=== PATIENT | female | born 1965 | race Caucasian/White ===

== ENCOUNTER → 2016-12-24 | Outpatient (CLI) | payer BC ==
--- NOTE | 2016-12-24 09:59 | MM ---
Reason for exam: additional evaluation requested from abnormal screening. Last mammogram was performed less than 1 month ago. History: Patient is postmenopausal. Family history of breast cancer in maternal cousin at age 39 and breast cancer in paternal aunt at age 50. Benign left US cyst aspiration of the left breast, December 20, 2006. Benign US right core biopsy of the right breast, December 20, 2006. Benign ultrasound-guided core biopsy of the right breast, May 17, 2000. Benign ultrasound-guided core biopsy of the right breast, May 17, 2000. 2 core biopsies of the right breast. Took hormonal contraceptives for 4 years beginning at age 18. Physical Findings: Nurse did not find any significant physical abnormalities on exam. MG Work Up Mamm w CAD LT CC and MLO view(s) were taken of the left breast. Prior study comparison: December 18, 2016, bilateral MG screening mammo w CAD. May 17, 2010, bilateral digital screening mammo w/CAD. There is an indeterminate group of microcalcifications in the left upper outer quadrant. These results were verbally communicated with the patient and result sheet given to the patient on 12/24/16. ASSESSMENT: Suspicious, BI-RAD 4 RECOMMENDATION: Stereotactic core biopsy of the left breast. Called Dr. Katie Barbour with mammographic findings and has scheduled an appointment for the patient for 01/16/17 at 1:[address] Pedro Barbour. Biopsy scheduled for 12/31/16 at 8:00. PRELIMINARY REPORT CALLED AND FAXED TO DR. BARBOUR ON 12/24/16.
== END | disposition home or self-care (01) ==
LOC: RADMAMWWP 07:39
PROVIDERS: ATTEND Family Medicine
DX: R92.8 Other abnormal and inconclusive findings on diagnostic imaging of breast (principal)

== ENCOUNTER → 2016-12-31 | Day surgery (SDC) | payer BC ==
[2016-12-31 07:17] VITALS: RESP 16; BMI 28.3
[2016-12-31 08:40] VITALS: BP 121/79; PULSE 67; TEMP 97
--- NOTE | 2016-12-31 09:01 | MM ---
EXAMINATION TYPE: MG stereo VAD BX LT DATE OF EXAM: 12/31/2016 COMPARISON: 12/18/2016 and 12/24/2016 CLINICAL HISTORY: 51-year-old female referred for left breast biopsy of microcalcifications TECHNIQUE: Stereotactic guided core biopsy of the left breast. FINDINGS: The procedure of stereotactic guided core biopsy was explained to the patient. Benefits, alternatives, and risks were discussed. An informed consent was then obtained. The [facility] pathway [facility] a [facility]. I performed the localization followed by the remainder of the procedure. A vacuum assisted biopsy gun was used to obtain 6 core samples. The patient tolerated the procedure well without any immediate complication. The patient was kept in the radiology department for short stay after the procedure and then discharged home in stable condition. Targeted calcifications are identified in specimen mammogram. Post biopsy mammogram shows the clip to appear in satisfactory position relative to the targeted area of concern on the preprocedure images. IMPRESSION: SUCCESSFUL, UNCOMPLICATED STEREOTACTIC GUIDED CORE BIOPSY OF LEFT BREAST UPPER OUTER QUADRANT MICROCALCIFICATIONS; FULL PATHOLOGY RESULTS TO FOLLOW. Pathology Results: High Risk BREAST, LEFT, SITE A, STEREOTACTIC CORE BIOPSY: ATYPICAL DUCTAL HYPERPLASIA/ FLAT EPITHELIAL ATYPIA IN BACKGROUND FIBROCYSTIC CHANGE. Recommendation Surgical consult of the left breast. (surgical excision) ALOK
== END ==
LOC: RADMAMWWP 06:55
PROVIDERS: ATTEND Surgery
DX: N60.12 Diffuse cystic mastopathy of left breast (principal)
CPT/HCPCS: 88305; 19081; A4648; J2001

== ENCOUNTER 2017-01-21 08:25 | Day surgery (SDC) | payer BC ==
[2017-01-17 11:38] VITALS: BMI 28.3
[~2017-01-21 08:25] MED LIST: DEXAMETHASONE SOD PHOSPHATE 10 MG/ML 1 ML VIAL IV ONE; HEPARIN SODIUM,PORCINE 5,000 UNIT/ML 1 ML VIAL SQ ONE; HYDROmorphone 0.5 MG/0.5 ML SYRINGE IVP PRN; LACTATED RINGERS 1,000 ML IV SCH; LIDOCAINE 1% 20 ML VIAL (10MG/ML) FOR IV START INTRADERMA PRN; MIDAZOLAM 2 MG/2 ML VIAL IV PRN; ONDANSETRON 4 MG/2 ML VIAL IVP ONE; Pre Op ABX Message 1 EACH MISC MISCELLANE ONE; SCOPOLAMINE 1.5MG/72HR PATCH TRANSDERM ONE
[2017-01-21] MEDS ORDERED: ALPRAZolam 0.5 MG TAB PO ONE (09:14)
[2017-01-21] MEDS ORDERED: LIDOCAINE 1% INJ 10MG/ML (20 ML MDV) SQ ONE (09:56)
[2017-01-21] MEDS ORDERED: fentaNYL (PF) 50 MCG/ML 2 ML AMP ONE (11:26)
[2017-01-21] MEDS ORDERED: LIDOCAINE 1% INJ 10MG/ML (20 ML MDV) ONE (11:26)
[2017-01-21] MEDS ORDERED: MIDAZOLAM 2 MG/2 ML VIAL ONE (11:26)
[2017-01-21] MEDS ORDERED: PROPOFOL 10 MG/ML 20 ML VIAL IV ONE (11:26)
[2017-01-21] MEDS ORDERED: KETOROLAC 30 MG/ML 1 ML VIAL ONE (11:26)
[2017-01-21] MEDS ORDERED: SODIUM CHLORIDE 0.9% 50 ML with ceFAZolin 2,000 MG IV ONE ×2 (11:27)
[2017-01-21] MEDS ORDERED: HYDROcodone/APAP 5-325MG 1 EACH TAB PO PRN (12:17)
[2017-01-21] MEDS ORDERED: NALOXONE 0.4 MG/ML 1 ML VIAL IV PRN (12:17)
--- NOTE | 2017-01-21 12:18 | P.OP ---
Date of Procedure: 01/21/17 Procedure(s) Performed: PREOPERATIVE DIAGNOSIS: Abnormal left mammogram POSTOPERATIVE DIAGNOSIS: Same PROCEDURE: Left Breast wire localization biopsy SURGEON: Km EBL: Minimal ANESTHESIA: Sedation plus local COMPLICATIONS: None OPERATIVE PROCEDURE: Patient was placed on the operating room table in the supine position. The patient's breast was prepped and draped in usual sterile fashion. A curvilinear incision was made adjacent to the wire entrance site. I followed the wire down into the breast tissue. The breast tissue around the tip of the wire was fully excised using electrocautery. The specimen was sent for specimen radiogram. The clip was present within the specimen. The subcutaneous tissues were inspected. No bleeding was seen. The subcutaneous tissues were closed using 3-0 Vicryl sutures. The skin was closed using a running 4-0 Monocryl stitch. Steri-Strips and sterile dressings were applied. DISPOSITION: Stable to recovery room
[2017-01-21 12:20] VITALS: TEMP 97.2
[2017-01-21 13:14] VITALS: RESP 16
--- NOTE | 2017-01-21 13:18 | MM ---
EXAMINATION TYPE: MG pre op needle loc LT, MG surgical specimen LT DATE OF EXAM: 01/21/2017 COMPARISON: Mammogram December 31, 2016 and older studies CLINICAL HISTORY: Stereotactic guided core biopsy of ADH and FEA. TECHNIQUE: Needle localization with wire placement and surgical excision of area of concern in the left breast followed by specimen mammogram after surgery. FINDINGS: The procedure of needle localization with wire placement and than surgical excision was explained to the patient. Benefits, alternatives, and risks were discussed. An informed consent was then obtained. The shortest pathway for procedure was chosen. Shortest pathway was cranial approach. The overlying skin was prepped and draped in usual sterile fashion. Lidocaine was used as anesthetic into the skin and subcutaneous tissue up to the level of area of concern. A 5 cm needle was used. It was placed via a cranial approach under mammographic guidance. Subsequent 90 degrees mammogram show the needle to be in satisfactory position relative to the targeted area. At this point, wire was placed and the needle was withdrawn. The wire was fixed to patient's skin. Images were marked for surgeon. The patient tolerated the procedure well without any immediate complication. The patient was kept in the radiology department for short stay after the procedure and then taken to surgery for surgical excision. Targeted biopsy clip and wire are identified in specimen mammogram. The patient was kept in hospital for short stay after the procedure and then discharged home in stable condition. IMPRESSION: Successful, uncomplicated needle localization with wire placement and surgical excision of targeted biopsy clip in the left breast, full pathology results to follow. Pathology Results: High Risk BREAST, LEFT, IMAGE GUIDED WIRE LOCALIZATION AND RESECTION: ATYPICAL LOBULAR HYPERPLASIA. FIBROCYSTIC CHANGE (STROMAL FIBROSIS, CYST FORMATION, APOCRINE METAPLASIA, ADENOSIS AND DUCT HYPERPLASIA). BIOPSY SITE CHANGE. Recommendation Follow up mammogram of the left breast in 6 months. ALOK
[2017-01-21 13:49] VITALS: BP 110/72; PULSE 63
--- NOTE | 2017-01-29 07:42 | CDI ---
Dr. Barbour Clarification of the procedure performed on Ms Redding done on 01/21/17 needs clarification. According to your Procedure Note, the procedure performed was Left breast wire localization biopsy. According to your description, the wire was placed in the breast and then the tissue around the tip of the wire was fully excised using electrocautery and then sent to pathology. Mammography report indicates a surgical excision of the specimen was performed and the pathology report calls it a lumpectomy. Please clarify if this procedure was for an additional biopsy of the previously biopsied lesion or if the lesion was excised in it's totality. Please respond to this query in an addendum to your procedure note. Thank you for your time. PRINCE Jeffrey For further questions please contact Renetta Cardoso, informatics manager, at . This lesion was excised in its entirety. ALOK
== END 2017-01-21 13:57 | disposition home or self-care (01) ==
LOC: OR 08:25
PROVIDERS: ATTEND Surgery
DX: N60.32 Fibrosclerosis of left breast (principal); N60.82 Other benign mammary dysplasias of left breast; N60.22 Fibroadenosis of left breast; Z98.84 Bariatric surgery status; Z80.3 Family history of malignant neoplasm of breast; Z80.49 Family history of malignant neoplasm of other genital organs
CPT/HCPCS: 19125; 88342; 88307; 76098; 19281; J2250; J1644; J1100; J2405; J2001; J3010; J1885; J0690; J2704

== ENCOUNTER → 2017-08-08 | Outpatient (CLI) | payer BC ==
--- NOTE | 2017-08-08 09:13 | MM ---
Reason for exam: follow-up at short interval from prior study. Last mammogram was performed 7 months ago. History: Patient is postmenopausal and has history of high-risk lesion on a previous biopsy at age 51. Family history of breast cancer in maternal cousin at age 39 and breast cancer in paternal aunt at age 50. High risk MG pre op needle loc LT of the left breast, January 21, 2017. High risk MG stereo VAD BX LT of the left breast, December 31, 2016. Benign left US cyst aspiration of the left breast, December 20, 2006. Benign US right core biopsy of the right breast, December 20, 2006. Benign ultrasound-guided core biopsy of the right breast, May 17, 2000. Benign ultrasound-guided core biopsy of the right breast, May 17, 2000. 2 core biopsies of the right breast. Took hormonal contraceptives for 4 years beginning at age 18. Physical Findings: Nurse Summary: 1 x 1cm nodule in the left breast at 2 o'clock (nurse ts). MG Diagnostic Mammo LT w CAD CC, MLO, ML, spot compression MLO, and spot compression CC view(s) were taken of the left breast. Prior study comparison: December 24, 2016, left breast MG work up mamm w CAD LT. December 18, 2016, bilateral MG screening mammo w CAD. The breast tissue is heterogeneously dense. This may lower the sensitivity of mammography. There is an upper outer quadrant middle posterior depth asymmetry and two additional left asymmetries, one medial middle depth and one lateral middle depth. The two asymmetries resolve on spot compression and although the focal asymmetry improves precautionary upper outer quadrant ultrasound will be performed. These results were verbally communicated with the patient and result sheet given to the patient on 08/08/17. ASSESSMENT: Incomplete: need additional imaging evaluation, BI-RAD 0 RECOMMENDATION: Ultrasound of the left breast. upper outer quadrant
--- NOTE | 2017-08-08 09:19 | USB ---
Reason for exam: additional evaluation requested from abnormal screening. History: Patient is postmenopausal and has history of high-risk lesion on a previous biopsy at age 51. Family history of breast cancer in maternal cousin at age 39 and breast cancer in paternal aunt at age 50. High risk MG pre op needle loc LT of the left breast, January 21, 2017. High risk MG stereo VAD BX LT of the left breast, December 31, 2016. Benign left US cyst aspiration of the left breast, December 20, 2006. Benign US right core biopsy of the right breast, December 20, 2006. Benign ultrasound-guided core biopsy of the right breast, May 17, 2000. Benign ultrasound-guided core biopsy of the right breast, May 17, 2000. 2 core biopsies of the right breast. Took hormonal contraceptives for 4 years beginning at age 18. US Breast Limited LT Technologist: Kaya Sims, RT (R)(M) Left limited breast ultrasound including focal area of concern, retroareolar and axilla demonstrates a 6 x 3 x 5mm lobular, cystic lesion at 2 o'clock and a 5 x 3 x 4mm oval, cystic lesion at 2 o'clock. Corresponds to mammographic finding. These results were verbally communicated with the patient and result sheet given to the patient on 08/08/17. ASSESSMENT: Benign, BI-RAD 2 RECOMMENDATION: Return to routine screening mammogram schedule for both breasts.
== END | disposition home or self-care (01) ==
LOC: RADMAMWWP 06:54
PROVIDERS: ATTEND Surgery
DX: R92.8 Other abnormal and inconclusive findings on diagnostic imaging of breast (principal)
CPT/HCPCS: 77065

== ENCOUNTER → 2019-12-29 | Outpatient (CLI) | payer BC ==
--- NOTE | 2019-12-30 08:28 | MM ---
Reason for exam: screening (asymptomatic). Last mammogram was performed 2 years and 5 months ago. History: Patient is postmenopausal and has history of high-risk lesion on a previous biopsy at age 51. Family history of breast cancer in maternal cousin at age 39 and breast cancer in paternal aunt at age 50. High risk MG pre op needle loc LT of the left breast, January 21, 2017. High risk MG stereo VAD BX LT of the left breast, December 31, 2016. Benign left US cyst aspiration of the left breast, December 20, 2006. Benign US right core biopsy of the right breast, December 20, 2006. Benign ultrasound-guided core biopsy of the right breast, May 17, 2000. Benign ultrasound-guided core biopsy of the right breast, May 17, 2000. 2 core biopsies of the right breast. Took hormonal contraceptives for 4 years beginning at age 18. Physical Findings: A clinical breast exam by your physician is recommended on an annual basis and results should be correlated with mammographic findings. MG 3D Screening Mammo W/Cad Bilateral CC and MLO view(s) were taken. Prior study comparison: August 08, 2017, left breast MG diagnostic mammo LT w CAD. December 24, 2016, left breast MG work up mamm w CAD LT. The breast tissue is heterogeneously dense. This may lower the sensitivity of mammography. Stable benign calcifications. Previous mammotome biopsy in the right breast. There is no discrete abnormality. No significant changes when compared with prior studies. ASSESSMENT: Benign, BI-RAD 2 RECOMMENDATION: Routine screening mammogram of both breasts in 1 year.
== END | disposition home or self-care (01) ==
LOC: RADMAMWWP 11:14
PROVIDERS: ATTEND Family Medicine
DX: Z12.31 Encounter for screening mammogram for malignant neoplasm of breast (principal)
CPT/HCPCS: 77063; 77067

== ENCOUNTER 2020-01-26 10:09 | Day surgery (SDC) | payer BC ==
[2020-01-21 15:21] VITALS: BMI 31.8
[~2020-01-26 10:09] MED LIST changes: -DEXAMETHASONE SOD PHOSPHATE 10 MG/ML 1 ML VIAL IV ONE; -HEPARIN SODIUM,PORCINE 5,000 UNIT/ML 1 ML VIAL SQ ONE; -HYDROmorphone 0.5 MG/0.5 ML SYRINGE IVP PRN; +LIDOCAINE 1% (10MG/ML) FOR IV START INTRADERMA PRN; -LIDOCAINE 1% 20 ML VIAL (10MG/ML) FOR IV START INTRADERMA PRN; -MIDAZOLAM 2 MG/2 ML VIAL IV PRN; -ONDANSETRON 4 MG/2 ML VIAL IVP ONE; -Pre Op ABX Message 1 EACH MISC MISCELLANE ONE; -SCOPOLAMINE 1.5MG/72HR PATCH TRANSDERM ONE
[2020-01-26 10:40] VITALS: TEMP 97.2
[2020-01-26] MEDS ORDERED: PROPOFOL 10 MG/ML 20 ML VIAL IV ONE (12:15)
--- NOTE | 2020-01-26 12:15 | P.GSHP ---
History of Present Illness H&P Date: 01/26/20 Chief Complaint: Colon cancer screening Patient here today for colonoscopy. Last colonoscopy over 5 years ago. No family history of colon cancer. No bowel complaints. Past Medical History Past Medical History: No Reported History Additional Past Medical History / Comment(s): Sister has Factor V deficiency. States I have been tested and I do not have it. History of Any Multi-Drug Resistant Organisms: None Reported Past Surgical History: Bariatric Surgery, Cholecystectomy, Tubal Ligation Additional Past Surgical History / Comment(s): lapband 2013, breast bx.'s Past Anesthesia/Blood Transfusion Reactions: No Reported Reaction Smoking Status: Never smoker - Past Family History Mother Family Medical History: Cancer Additional Family Medical History / Comment(s): Cervical Sister(s) Additional Family Medical History / Comment(s): Sister has Factor V deficiency. States I have been tested and I do not have it. Medications and Allergies Home Medications Medication Instructions Recorded Confirmed Type Multivitamin/Iron/Folic Acid 1 tab PO DAILY 12/14/15 01/21/20 History [Centrum Complete Multivit Tab] Allergies Allergy/AdvReac Type Severity Reaction Status Date / Time No Known Allergies Allergy Verified 01/26/20 10:35 Surgical - Exam Vital Signs Temp Pulse Resp BP Pulse Ox 97.2 F L 77 17 141/63 100 01/26/20 10:35 01/26/20 10:35 01/26/20 10:35 01/26/20 10:35 01/26/20 10:35 Physical exam: General: Well-developed, well-nourished HEENT: Normocephalic, sclerae nonicteric Abdomen: Nontender, nondistended Extremities: No edema Neuro: Alert and oriented Assessment and Plan (1) Colon cancer screening Narrative/Plan: Will proceed with colonoscopy at this time Current Visit: Yes Status: Acute Code(s): Z12.11 - ENCOUNTER FOR SCREENING FOR MALIGNANT NEOPLASM OF COLON SNOMED Code(s): 009335811
--- NOTE | 2020-01-26 12:41 | P.PCN ---
Date of Procedure: 01/26/20 Procedure(s) Performed: PREOPERATIVE DIAGNOSIS: Colon cancer screening POSTOPERATIVE DIAGNOSIS: Minimal diverticulosis PROCEDURE: Colonoscopy ANESTHESIA: MAC SURGEON: Pedro Barbour M.D. SPECIMENS: None ENDOSCOPIC PROCEDURE: The patient was placed on the endoscopy table in the left decubitus position. The Olympus colonoscope was inserted into the anus and passed under direct visualization to the base of the cecum. The appendiceal orifice was visualized. From that point the scope was slowly withdrawn inspecting all surfaces carefully. There were no neoplastic inflammatory or polypoid lesions throughout the cecum, ascending, transverse, descending, sigmoid and rectum. There was minimal left-sided diverticulosis noted. Digital rectal examination was normal. The patient was taken to the recovery room in stable condition per anesthesia guidelines. RECOMMENDATIONS: Resume diet. Follow colonoscopy 10 years.
[2020-01-26 12:57] VITALS: RESP 16
[2020-01-26 12:59] VITALS: BP 116/58; PULSE 60
== END 2020-01-26 13:30 | disposition home or self-care (01) ==
LOC: ORWHC2ENDO 10:09
PROVIDERS: ATTEND Surgery
DX: Z12.11 Encounter for screening for malignant neoplasm of colon (principal); K57.30 Diverticulosis of large intestine without perforation or abscess without bleeding; Z98.84 Bariatric surgery status; Z90.49 Acquired absence of other specified parts of digestive tract; Z98.51 Tubal ligation status; Z98.890 Other specified postprocedural states; Z80.49 Family history of malignant neoplasm of other genital organs; Z84.89 Family history of other specified conditions
CPT/HCPCS: J2704; G0121

== ENCOUNTER → 2022-01-22 | Outpatient (CLI) | payer BC ==
--- NOTE | 2022-01-22 19:14 | BD ---
EXAMINATION TYPE: Axial Bone Density DATE OF EXAM: 01/22/2022 COMPARISON: BASELINE CLINICAL HISTORY: 56 yearsold Female. ICD-10 CODE: Z78.0 ASYMPTOMATIC MENOPAUSAL STATE Height: 62 Weight: 199 FRAX RISK QUESTIONS: Family History (Parent hip fracture): N Secondary Osteoporosis: NO Rheumatoid Arthritis: NO RISK FACTORS HISTORY OF: Family History of Osteoporosis: NO Active: YES Diet low in dairy products/other sources of calcium: YES Postmenopausal woman: YES Lost more than 2 inches in height since high school: NO Frequent falls: NO Poor Health: NO Hyperparathyroidism: NO Adrenal Insufficiency: NO MEDICATIONS: Additional Medications: YES VIT D , CALCIUM EXAM MEASUREMENTS: Bone mineral densitometry was performed using the [employer]. Bone mineral density as measured about the Lumbar spine is: ----- L1-L4(G/cm2): 1.198 T Score Values are as follows: ----- L1: -1.3 ----- L2: -0.2 ----- L3: 0.9 ----- L4: 0.6 ----- L1-L4: 0.1 Bone mineral density BASELINE Bone mineral density about the R hip (g/cm2): 1.104 Bone mineral density about the L hip (g/cm2): 1.154 T Score values are as follows: -----R Neck: -0.4 -----L Neck: -.01 -----R Total: 0.8 -----L Total: 1.2 Bone mineral density BASELINE FRAX%s: The graph provided illustrates a 5.3% chance for a major osteoporotic fx and a 0.1% chance fo r the hips probability for fx in 10 years time. IMPRESSION: Normal (Values between +1 and -1 indicate normal bone mass). Consider repeating this study in 5 year s or sooner if there is some new clinical indication. NOTE: T-SCORE=SD OF THE YOUNG ADULT MEAN.
--- NOTE | 2022-01-23 18:10 | MM ---
Reason for Exam: Screening (asymptomatic). Last mammogram was performed 2 year(s) and 1 month(s) ago. Patient History: Menarche at age 10. First Full-Term at age 22. Postmenopausal. Hormonal Contraceptives for 4 years from age 18 until age 22. Core Biopsy on the Right side. Core Biopsy on the Right side. 01/21/2017, High risk Core Biopsy on the left side. 12/31/2016, High risk Core Biopsy on the left side. 12/20/2006, Benign Cyst Aspiration on the left side. 12/20/2006, Benign Core Biopsy on the right side. 05/17/2000, Benign Ultrasound-Guided Core Biopsy on the right side. 05/17/2000, Benign Ultrasound-Guided Core Biopsy on the right side. Maternal cousin had breast cancer, age 39. Paternal aunt had breast cancer, age 50. Risk Values: Lisa 5 year model risk: 1.9%. NCI Lifetime model risk: 11.4%. Prior Study Comparison: 12/24/2016 Left Diagnostic Mammogram, [facility]. 08/08/2017 Left Diagnostic Mammogram, [facility]. 12/29/2019 Bilateral Screening Mammogram, [facility]. Tissue Density: The breast tissue is heterogeneously dense. This may lower the sensitivity of mammography. Findings: Analyzed By CAD. Chronic nodularity on the right. Microclip lower inner quadrant right breast from prior biopsy. There is no suspicious group of microcalcifications or new suspicious mass in either breast. Overall Assessment: Benign, BI-RAD 2 Management: Screening Mammogram of both breasts in 1 year. 1. Patient should continue monthly self breast exams. 2. A clinical breast exam by your physician is recommended on an annual basis. 3. This exam should not preclude additional follow-up of suspicious palpable abnormalities. Electronically signed and approved by: Antwon Arias M.D. Radiologist
== END | disposition home or self-care (01) ==
LOC: RADBDWWP 15:16
PROVIDERS: ATTEND Family Medicine
DX: Z12.31 Encounter for screening mammogram for malignant neoplasm of breast (principal); M85.88 Other specified disorders of bone density and structure, other site; Z78.0 Asymptomatic menopausal state; Z80.3 Family history of malignant neoplasm of breast; Z98.890 Other specified postprocedural states
CPT/HCPCS: 77063; 77067; 77080

== ENCOUNTER → 2023-11-26 | Outpatient (CLI) | payer BC ==
--- NOTE | 2023-11-27 09:15 | MM ---
Reason for Exam: Screening (asymptomatic). Last mammogram was performed 1 year(s) and 10 month(s) ago. Patient History: Menarche at age 10. First Full-Term at age 22. Postmenopausal. Hormonal Contraceptives for 4 years from age 18 until age 22. Core Biopsy on the Right side. Core Biopsy on the Right side. 01/21/2017, High risk Core Biopsy on the left side. 12/31/2016, High risk Core Biopsy on the left side. 12/20/2006, Benign Cyst Aspiration on the left side. 12/20/2006, Benign Core Biopsy on the right side. 05/17/2000, Benign Ultrasound-Guided Core Biopsy on the right side. 05/17/2000, Benign Ultrasound-Guided Core Biopsy on the right side. Maternal cousin had breast cancer, age 39. Paternal aunt had breast cancer, age 50. Risk Values: Lisa 5 year model risk: 2.0%. NCI Lifetime model risk: 10.9%. Prior Study Comparison: 08/08/2017 Left Diagnostic Mammogram, [facility]. 12/29/2019 Bilateral Screening Mammogram, [facility]. 01/22/2022 Bilateral MG 3D screening mammo w/cad, [facility]. Tissue Density: The breasts are heterogeneously dense, which may obscure small masses. Findings: Analyzed By CAD. There is no suspicious group of microcalcifications or new suspicious mass in either breast. Overall Assessment: Benign, BI-RAD 2 Management: Screening Mammogram of both breasts in 1 year. . Patient should continue monthly self-breast exams. A clinical breast exam by your physician is recommended on an annual basis. This exam should not preclude additional follow-up of suspicious palpable abnormalities. Note on Lisa scores and lifetime risk: 1. A Lisa score greater than 3% is considered moderate risk. If this is the case, consider specialist referral to assess eligibility for a risk reducing agent. 2. If overall lifetime risk for the development of breast cancer is 20% or higher, the patient may qualify for future screening with alternating mammogram and breast MRI. [facility], , 11/27/2023 9:11 AM. Electronically signed and approved by: Guido Gaona M.D. Radiologis
== END | disposition home or self-care (01) ==
LOC: RADMAMWWP 08:30
PROVIDERS: ATTEND Family Medicine
DX: Z12.31 Encounter for screening mammogram for malignant neoplasm of breast
CPT/HCPCS: 77063; 77067